=== PATIENT | female | born 1975 | race Caucasian/White ===

== ENCOUNTER 2021-08-02 12:29 | Emergency (ER) | payer BC ==
[~2021-08-02] VITALS: Ht 162.6 cm; Wt 125.0 kg
[2021-08-02 12:45] VITALS: BP 155/98
--- NOTE | 2021-08-02 13:06 | NUR ---
Pt c/o R knee pain. States that she cannot bear weight on R knee.
== END 2021-08-02 14:36 | disposition home or self-care (01) ==
LOC: ER 12:30
DX: M25.561 Pain in right knee (principal); X58.XXXA Exposure to other specified factors, initial encounter; Y93.89 Activity, other specified; Y92.89 Other specified places as the place of occurrence of the external cause; Y99.8 Other external cause status
CPT/HCPCS: 29505; 99283